=== PATIENT | male | born 2000 | race Two or more races ===

== ENCOUNTER 2023-07-04 11:36 | Emergency (ER) | payer BC, MEDICAID ==
[~2023-07-04] VITALS: Ht 180.3 cm; Wt 84.2 kg
[2023-07-04 11:52] VITALS: PULSE 86; RESP 18; O2SAT 97
[2023-07-04 13:19] LABS: Basophils # (auto) 0 10 ^3/uL (0-0.2); Basophils % (auto) 0.3 % (0.0-2.0); Eosinophils # (auto) 0.4 10 ^3/uL (0-0.8); Eosinophils % (auto) 4.4 % (0.0-7.0); Hematocrit 43.8 % (41.0-53.0); Lymphocytes # (auto) 3.1 10 ^3/uL (0.4-5.4); Lymphocytes % (auto) 32.2 % (10.0-50.0); Mean Corpuscular Hgb Conc. 34.2 g/dL (32.0-36.0); Mean Corpuscular Volume 87.7 fL (80.0-100.0); Monocytes # (auto) 0.4 10 ^3/uL (0-1.3); Monocytes % (auto) 3.8 % (0.0-12.0); Neutrophils # (auto) 5.6 10 ^3/uL (1.6-8.6); Neutrophils % (auto) 59.3 % (37.0-80.0); Red Blood Cells 4.99 10^6/uL (4.5-5.90); Red Cell Distribution Width 13.2 % (11.8-14.3); White Blood Cell 9.5 10^3/uL (4.4-10.8)
[2023-07-04 13:47] LABS: Alanine Aminotransferase 31 U/L (7-40); Albumin 4.4 g/dL (3.2-4.8); Alkaline Phosphatase 73 U/L (46-116); Anion Gap 6 (5-15); Aspartate Aminotransferase 23 U/L (13-40); BUN/Creatinine Ratio 17.9 (10.0-20.0); Bilirubin, Total 0.7 mg/dL (0.2-1.0); Blood Urea Nitrogen 17 mg/dL (9-23); Calcium 9.5 mg/dL (8.7-10.4); Carbon Dioxide 28 mmol/L (20-30); Chloride 105 mmol/L (98-107); Glucose 100 mg/dL (74-106); Potassium 3.9 mmol/L (3.5-5.1); Sodium 139 mmol/L (136-145); Total Protein 6.6 g/dL (5.7-8.2)
[2023-07-04] MEDS ORDERED: TAMSULOSIN HYDROCHLORIDE 0.4 MG CAP PO ONE (14:45)
[2023-07-04] MEDS ORDERED: ONDANSETRON HCL 4 MG/2 ML VIAL IV ONE (14:45)
[2023-07-04] MEDS ORDERED: HYDROmorphone HCL 2 MG/ML VL/or syr IV ONE (14:45)
[2023-07-04] MEDS ORDERED: KETOROLAC TROMETH 30 MG/ML 1ML VIAL IV ONE (14:45)
[2023-07-04] MEDS ORDERED: KETOROLAC TROMETH 60MG/2ML VIAL IV ONE (15:30)
[2023-07-04 18:48] LABS: Urine Bacteria NONE SEEN /hpf (None Seen); Urine Blood Negative /uL (Negative); Urine Clarity Clear (Clear); Urine Color Colorless (Yellow); Urine Protein, UAD Negative (Negative); Urine Specific Gravity 1.013 (1.001-1.035); Urine Urobilinogen Normal (Negative); Urine WBC 2 /hpf (0 - 3); Urine pH 6.5 (5.0-8.0)
[2023-07-04 19:20] VITALS: BP 131/75; PULSE 66; RESP 16; TEMP 98.7; O2SAT 97
[2023-07-04] MEDS ORDERED: METO-281 PO (19:24)
[2023-07-04] MEDS ORDERED: ACET-1304 PO (19:24)
[2023-07-04] MEDS ORDERED: TAMS-35 PO (19:24)
[2023-07-04] MEDS ORDERED: NAPR-746 PO (19:24)
== END 2023-07-04 20:05 | disposition home or self-care (01) ==
LOC: ER 11:36
DX: N23 Unspecified renal colic (principal)
CPT/HCPCS: 36415; 74176; 80053; 81001; 85025; 96374; 96375; 99285; J1170; J1885; J2405